=== PATIENT | female | born 1950 | race Caucasian/White ===

== ENCOUNTER 2016-10-29 07:35 | Inpatient (IN) | payer MEDICARE, OTHER ==
[2016-10-29] VITALS (14 sets, daily range): BP systolic 92–134; BP diastolic 51–80; PULSE 49–82; RESP 8–20; O2SAT 95–100
[~2016-10-29] VITALS: Ht 160 cm; Wt 83.1 kg
[~2016-10-29 07:35] MED LIST: ASPI325T32 PO; BUPR300T52 PO; Bupivacaine Liposome 1.3% 20 mL Inj INFILTRATE ONE; CHOL200025 PO; CeFAZolin 2 Gm/50 mL D5W IV Premix IV ONE; FEXO180T85 PO; FLUT16SP NS; LOSA50TA37 PO; LOVA40TA PO; Lactated Ringer's 1,000 ML IV ONE; MULT-1018 PO; OMEG-83 PO; PROP20TA5 PO; TRAM50TA2 PO; UBID1CAP3 PO; VIT1TABL83 PO; stool softener
[2016-10-29] MEDS ORDERED: Lactated Ringer's 500 ML IV PRN (10:07)
[2016-10-29] MEDS ORDERED: Lactated Ringer's 1,000 ML IV SCH (10:07)
--- NOTE | 2016-10-29 10:07 | PCM.HPANE ---
Patient Data Surgeon Admitting Provider: Attending Provider:Noman Aguirre DO Primary Care Physician:Nilton Braga MD Other Provider:Gabino Shaw Anesthesia Reason for Visit Left Knee Arthritis LEFT KNEE ARTHRITIS Ht/WT & BMI Height (Feet): 5 Height (Inches): 3.00 Weight (Kilograms): 84.500 Body Mass Index 33.00 Allergies Coded Allergies: hydrocodone (Verified Allergy, Severe, nausea, 10/29/16) morphine (Verified Allergy, Severe, emotional distress, 10/29/16) adhesive tape (Verified Allergy, Intermediate, tolerated bandaids, 10/21/16 ) hydroxyzine (Verified Allergy, Unknown, 10/21/16) Past Anesthesia History Anesthesia History: Denies:: Abnormal Airway, Anesthesia Reactions, Difficult Intubation, Fam Anesthesia Reaction (sister had difficult time with intubation recent surgery ), Fam Malignant Hypertherm, Malignant Hyperthermia Diabetes History Hx Diabetes?: No MRSA MRSA: No Medications Blood Thinner: Aspirin Hypertension Medication: Yes Home Meds Incl Beta Louis: Yes Date Beta Louis Taken: Oct 29, 2016 Time Beta Louis Taken: 629 Reported Medications Cholecalciferol (Vitamin D3) (Vitamin D3)2,000 Unit Tablet2,000 Unit PO DAILY 10/21/16 Vit B Comp/C/FA/Iron/Vit E (Vitamin B Complex Tablet)1 Each Tablet1 Each PO DAILY 10/21/16 Tramadol 50 Mg [id number] Mg PO BID PRN For Pain Ref 0 10/21/16 [stool softener] No Conflict [id number] Mg Pe BID PRN For Constipation 10/21/16 Propranolol HCl 20 Mg [id number] Mg PO BID 90 Days Ref 0 10/21/16 Multivitamin (Multi Vitamin Daily)1 Each Tablet1 Each PO DAILY 30 Days Ref 0 10/21/16 Lovastatin 40 Mg [id number] Mg PO HS #30 TABLET Ref 0 10/21/16 Losartan Potassium 50 Mg Hljfre68 Mg PO HS 10/21/16 Fluticasone Propionate (Fluticasone Propionate Nasal)16 Gm [place].susp1 [place] NS BID #16 GM Ref 0 10/21/16 [place]-3/Dha/Epa/Fish Oil (Fish Oil 500 mg Softgel)1 Each Capsule2 Each PO DAILY 10/21/16 Ubidecarenone/Vitamin E (Co Q-10 50 mg Softgel)1 Each Capsule1 Each PO DAILY 10/21/16 Bupropion ER 300 Mg Tab.[id number] Mg PO DAILY Ref 0 10/21/16 Aspirin 325 Mg Dbrqyk439 Mg PO DAILY #1 BOTTLE 10/21/16 Fexofenadine (Liz Allergy)180 Mg Jedvks080 Mg PO DAILY Ref 0 10/21/16 History History of ENT Problems?: Yes HEENT History: Positive for:: Sinus Problem (hx of seasonal allergies) Denies:: Abnormal Airway Cataracts Difficult Intubation Glaucoma Hearing Problem Denture Type: None Teeth Condition: Within Normal Limits Hx of Heart Problems?: Yes Cardiovascular History: Positive for:: Hypertension Denies:: AICD Abdominal Aortic Aneurism Atrial Fibrillation Cardiac Surgery Heart Murmur Irregular Heartbeat Pacemaker Peripheral Vascular Rheumatic Fever Hx of Respiratory Problem?: No Respiratory History: Positive for:: Cough (SEASONAL ALLERGIES) Denies:: Asthma COPD Emphysema Oxygen Administration Pneumonia Tuberculosis Use of C-PAP Machine Hx Neurologic Problems?: Yes Neurological History: Positive for:: Headaches (fairly often - weekly need for meds) Denies:: CVA Multiple Sclerosis Parkinson's Disease Seizures Hx of GI Problems?: No Hx of Problems?: No Genitourinary History: Denies:: Kidney Stones Urinary Tract Infection Female Hx: Denies:: Currently (hysterectomy) Problems with Breasts? Skin History: Denies:: History Skin Disorders? Pressure Ulcers Hx Musculoskeletal Problems?: Yes Musculoskeletal History: Positive for:: Back Injury (hx of laminectomy- bone spur L4-5) Degenerative Joint Musculoskeletal Trauma (left knee current admission problem) Osteoarthritis Denies:: Fibromyalgia Joint Replacement Systemic Lupus Hx of Psycho/Social Problems?: Yes Psycho Social History: Positive for:: Anxiety (propanolol as needed for anxiety) Hx Depression Hx Surgeries?: Yes (HYST, L TIBIA FX, APPY, L5 BONE SPUR) Hx Any Other Health Problems?: Yes Other History: Positive for:: Cancer (bcc - nose) Denies:: Endocrine Disease Hospitalization Thyroid Disease History Blood Transfusions: Positive for:: Accept Blood Products? Denies:: Blood Transfusions Hx Diabetes: No Hx Alcohol Use: NoAlcoholic Drinks Per Day: rare- one every few yearsHx Substance Use: NoHave You Smoked inLast 12 mo: Yes (quit july 06, 2016- 5-10 cig daily prior to that) Stop/Bang Treated for Sleep Apnea?: No Do You Have a CPAP Machine?: No S-Snoring: Do You Snore Loudly: No T-Tired: feel tired, fatigued: No O-Obsered: Observed not breath: No P-Blood Pressure: treated: Yes B- Body Mass Index > 35 kg/m2: No A- Age over 50: Yes N- Neck Large Circumference: No G- Gender Male: No GINO Total Score: 2 GINO Risk Assessment: Low Risk, <3 Yes Risk Assessment Category Category 1A: Patient has history of documented sleep apnea, and HAS NOT received any narcotic, sedative or anesthesia administration during this stay. Category 1B: Patient has history of documented sleep apnea, and HAS received any narcotic , sedative or anesthesia administration during this stay Category 2: Patient has SUSPECTED Obstructive Sleep Apnea, and HAS received any narcotic , sedative or anesthesia administration during this stay. Category 3: Patient has SUSPECTED Obstructive Sleep Apnea and HAS NOT received narcotic, sedative or anesthesia administration during this stay. Category 4: Outpatient in Procedural Areas with known sleep apnea or who screen positive for High Risk via the STOP/BANG questionnaire. Exam Exam Vital Signs Vital Signs Date Time Temp Pulse Resp B/P Pulse Ox O2 Delivery O2 Flow Rate FiO2 10/29/16 07:52 36.5 67 15 127/79 97 Room Air General Appearance: Oriented X3 HEENT/AIRWAY: MP 2 Lungs: Normal Air Movement Heart: Regular Rate/Rhythm Meds/Labs/Diagnostics Admission Meds Current Medications Lactated Ringer's (Lr) 1,000 ml @ 120 mls/hr Q8H20M ONCE IV Last administered on 10/29/16t 07:54; Start 10/29/16 at 05:00; Stop 10/29/16 at 13:19 Plan Impression Patient chart reviewed, patient interviewed and anesthestic plan with risks, benefits, and alternatives discussed, and informed consent obtained. ASA Physical Status: ASA2 Mod Systemic Disease Anesthetic Plan: Regional Block, SAB Bene/Risks/Altern/Consents: Yes HP Complete Prior to Induction: Yes Tomas Young MD Oct 29, 2016 10:07
[2016-10-29] MEDS ORDERED: MetoCLOpramide 5 mg/mL 2 mL Inj IVPUSH PRN (10:10)
[2016-10-29] MEDS ORDERED: EPHEDrine Sulfate 50 mg/mL Inj IVPUSH PRN (10:10)
[2016-10-29] MEDS ORDERED: Labetalol 5 mg/mL 20 mL Inj IV PRN (10:10)
[2016-10-29] MEDS ORDERED: Ondansetron 2 mg/mL 2 mL Inj IVPUSH PRN ×2 (10:10→13:30)
[2016-10-29] MEDS ORDERED: Dexamethasone 4 mg/mL Inj IVPUSH PRN (10:10)
[2016-10-29] MEDS ORDERED: Phenylephrine 10,000 mCg/mL Inj IVPUSH PRN (10:10)
[2016-10-29] MEDS ORDERED: Bupivacaine Liposome 1.3% 20 mL Inj ONE (10:21)
[2016-10-29] MEDS ORDERED: 0.9% Sodium Chloride 100 ML ONE (10:37)
[2016-10-29] MEDS: Tranexamic Acid 100 mg/mL 10 mL Inj ONE ×2 (10:37→11:07)
[2016-10-29] MEDS ORDERED: Vancomycin 1,000mg/200 mL NS IV ONE (10:37)
[2016-10-29] MEDS ORDERED: Vancomycin Inj 1,000 MG in IV Premix 1 EACH IV ONE (11:00)
[2016-10-29] MEDS ORDERED: Bupivacaine Liposome 1.3% 20 mL Inj INFILTRATE ONE (11:16)
[2016-10-29] MEDS ORDERED: Sodium Chloride Bacteriostatic 30 mL Inj INJ ONE (11:16)
[2016-10-29] MEDS ORDERED: Bupivacaine-MPF 0.5% 30 mL Inj INFILTRATE ONE (11:16)
[2016-10-29] MEDS: fentaNYL-PF 50 mCg/mL 2 mL Inj IVPUSH PRN ×6 (13:17→14:24)
[2016-10-29] MEDS ORDERED: HYDROmorphone 1 mg/mL Inj IVPUSH PRN (13:30)
[2016-10-29] MEDS ORDERED: Sodium Biphos-Phos 133 mL Enema RECTAL PRN (13:30)
[2016-10-29] MEDS ORDERED: Polyethylene Glycol (PEG) 17 Gm Powder PO PRN (13:30)
[2016-10-29] MEDS ORDERED: Magnesium Hydroxide 10 mL Oral Concentration PO PRN (13:30)
[2016-10-29] MEDS ORDERED: diphenhydrAMINE 25 mg Capsule PO PRN (13:30)
[2016-10-29] MEDS: Ketorolac 15 mg/mL Inj IVPUSH PRN ×2 (13:50→21:09)
--- NOTE | 2016-10-29 14:04 | PCM.ANEP1 ---
Post Anesthesia PACU Phase 1 Assessment Vital Signs Vital Signs Date Time Temp Pulse Resp B/P Pulse Ox O2 Delivery O2 Flow Rate FiO2 10/29/16 13:31 56 10 112/66 100 Simple Mask 10 10/29/16 13:26 51 8 105/66 100 Simple Mask 10 10/29/16 13:21 49 13 98/55 100 Simple Mask 10 10/29/16 13:15 50 19 95/55 98 Simple Mask 10 10/29/16 13:11 51 15 92/51 100 Simple Mask 10 10/29/16 13:05 51 12 98/59 95 Simple Mask 10 10/29/16 13:00 36.6 53 15 98/60 96 Simple Mask 10 10/29/16 07:52 36.5 67 15 127/79 97 Room Air Anesthetic Administered: GA, Regional Block Level of Alertness: Awake, talking Pain: No Nausea or Vomiting: No CV Function & Hydration Stable: Yes Airway Device: Lungs: Normal Air Movement PACU Phase 2 Assessment Patient Instructions Provided: N/A Tomas Young MD Oct 29, 2016 14:04
--- NOTE | 2016-10-29 14:09 | OP ---
[address] [address] OPERATIVE REPORT PATIENT: YI NICHOLE : 1950 MR#: [id number] ADMIT: 10/29/2016 JOB ID: [id number] DATE OF SURGERY: 10/29/2016 PREOPERATIVE DIAGNOSIS(ES): Left knee degenerative joint disease. POSTOPERATIVE DIAGNOSIS(ES): Left knee degenerative joint disease. PROCEDURE: Left total knee arthroplasty. SURGEON: Noman Aguirre DO. PULLING UNIT OPERATOR: None. INDICATIONS: The patient is a 65-year-old female with left knee posttraumatic arthritis after a tibial plateau fracture 30 years ago. She has had pain and instability and wished to proceed with a left total knee arthroplasty. We discussed the risks, benefits, and possible complications of surgery. All questions were answered and she wished to proceed. PROCEDURE IN DETAIL: The patient was brought to the operating room. She was given 1 g TXA preoperatively, as well as preoperative antibiotic. The left lower extremity was sterilely prepped and draped. A tourniquet was used for hemostasis. An incision was made over the anteromedial knee as I felt that I could not use her previous Abi-type incision and dissection was carefully carried through the subcutaneous tissue and down onto the quad tendon which was incised, leaving a cuff of tissue for repair. This was taken along the medial retinaculum and then down onto the proximal medial tibial face. A small amount of subperiosteal medial release was performed in order to gain exposure, and the patella was everted. A portion of the fat pad was removed. The femur was instrumented with the intramedullary drill and cutting sylvia, and a 5-degree distal valgus cut angle was chosen, 10 mm planned resection. The block was pinned into position. The cuts were performed. The tibia was addressed next with an extramedullary tibial cutting guide. I used the stylus to remove 1 mm of bone from the low side laterally, 10 cm from the high side medially The cutting jig was pinned into position. The cut was performed, completed with an osteotome, and the menisci were then removed. The femur was then sized, felt to be a size 6, with 5 degrees of external rotation. The block was pinned into position. The cuts were performed and then the box cut was performed. The knee was then trialed with the 6 femur and 4 tibia, which seemed to fit quite nicely. She did have some additional bone which was removed laterally as well, as I noticed at this point that there was this very small area of damage to the patellar tendon. About 20% to 25% of the tendon thickness was damaged as it had become trapped within her scar tissue from her previous surgical procedure. This was carefully monitored throughout the case. The patella was resurfaced with a freehand tie technique, cut from an initial thickness of about 22 to a thickness of 15. A 35 mm patellar button was chosen, drilled for and trialed, had excellent tracking. The femoral lugs were drilled. The tibia was drilled and punched, and the bony surfaces were washed and dried. We then cemented in a DePuy Attune fixed bearing 4 femur, followed by a DePuy Attune posterior stabilized 6 narrow femur, and a 5 mm thickness polyethylene component with a 38 mm patellar button. All excess cement was removed. The cement was then allowed to polymerize and then the tourniquet was let down. Electrocautery was used for hemostasis and I then repaired the small defect in the patellar tendon using two [id number] stitches with a FiberWire suture and then went to the usual closure with #1 Surgilon and 0 Vicryl to repair the quad tendon and medial retinaculum. The subcu was closed with 2-0 Vicryl. The skin was closed with a running subcuticular 4-0 Monocryl suture. A mixture of Exparel saline and Naropin was added as an adjunct local anesthetic. Sterile dressings were applied as well as Steri-Strips. Patient tolerated the procedure well. Blood loss was 50 cc. POSTOPERATIVE PROTOCOL: Have the patient weightbear to tolerance, but I would like her to use a hinged knee brace. Range of motion 0-90 degrees for the 1st six weeks and will plan to use aspirin for DVT prophylaxis.
[2016-10-29] MEDS: oxyCODONE-Acetamin 5-325 mg Tablet PO PRN ×2 (14:29→23:52)
--- NOTE | 2016-10-29 14:51 | DRSVH ---
PROCEDURE: X-RAY LEFT KNEE, ONE OR TWO VIEWS ([id number]) INDICATIONS: POST OPERATIVE TECHNIQUE: 2 view(s) of the knee acquired. COMPARISON: [facility], CR, XR KNEE ARTHRITIC SERIES LT, 05/13/2016, 9:03. [facility], CR, XR KNEE ARTHRITIC SERIES LT, 07/12/2015, 9:13. FINDINGS: Bones: Patient is status post knee joint arthroplasty. Hardware components are in expected position s. Visualized bony structures are intact. The overlying brace does result in difficulty evaluating the underlying bony structures on the lateral view. Soft tissues: Overlying postoperative changes are noted. Soft tissue air and soft tissue edema are present. No unexpected radiopaque foreign bodies are evident. IMPRESSION: Expected postoperative changes related to a total left knee arthroplasty. Dictated by: Vladislav Mcneil M.D. on 10/29/2016 at 13:49 Approved by: Vladislav Mcneil M.D. on 10/29/2016 at 13:50
[2016-10-29] MEDS ORDERED: Lactated Ringer's 1,000 ML IV ONE (15:45)
[2016-10-29] MEDS ORDERED: Propofol 10,000 mCg/mL 20 mL Inj ONE (16:36)
[2016-10-29] MEDS ORDERED: Ketamine 10 mg/mL 20 mL Inj ONE (16:36)
[2016-10-29] MEDS ORDERED: Dexamethasone 4 mg/mL Inj ONE (16:36)
[2016-10-29] MEDS ORDERED: fentaNYL-PF 50 mCg/mL 2 mL Inj ONE (16:36)
[2016-10-29] MEDS ORDERED: MetoCLOpramide 5 mg/mL 2 mL Inj ONE (16:36)
[2016-10-29] MEDS: 0.9% Sodium Chloride 1,000 ML IV SCH (16:53)
[2016-10-29] MEDS: Sodium Chloride LOK Flush 10 mL Syringe IV SCH (16:54)
[2016-10-29] MEDS: CeFAZolin Inj 2 GM in IV Premix 1 EACH IV SCH (17:51)
--- NOTE | 2016-10-29 19:37 | NUR ---
Arrival to [facility] Patient arrives to [facility] alert and oriented. Patient left leg in brace above mauro wrap. Ice bag in place at knee. Patient has a palpable posterior tibial pulse, warm toes, good sensation and movement. Patient does states she has some baseline numbness to the left leg related to a previous trauma. Patient denies any type of new numbness, tingling or burning. Patient states that pain is within a tolerable level. Ordered IV fluids and abx administered. Care is ongoing.
[2016-10-29] MEDS: Fluticasone 0.05% 15 Spray/2 Gm 16 Gm Nasal Spray NOSTRIL SCH (20:24)
[2016-10-29] MEDS: Senna-Docusate 8.6-50 mg Tablet PO SCH (20:26)
[2016-10-30 00:08] VITALS: BP 100/62; PULSE 69; RESP 18; O2SAT 97
[2016-10-30] MEDS: Sodium Chloride LOK Flush 10 mL Syringe IV SCH ×3 (00:30→16:30)
[2016-10-30] MEDS: CeFAZolin Inj 2 GM in IV Premix 1 EACH IV SCH (02:29)
[2016-10-30] MEDS: 0.9% Sodium Chloride 1,000 ML IV SCH ×3 (02:29→19:28)
[2016-10-30] MEDS: Ketorolac 15 mg/mL Inj IVPUSH PRN ×4 (03:33→20:51)
--- NOTE | 2016-10-30 05:10 | NUR ---
Pain and Positioning Patient is alert and oriented. Patient got up to the commode several times during the night - standby assist, tolerated well. Voiding without difficulty. Pain managed with Toradol IV. Patient states she would like to avoid taking narcotics when possible. Patient also states that repositioning helps with pain as well.
[2016-10-30 05:50] VITALS: BP 115/70; PULSE 73; RESP 20; O2SAT 97
[2016-10-30 06:50] LABS: BASOPHILS % (AUTO) 0.1 % (0-3); EOSINOPHILS % (AUTO) 0 % (0-5); MONOCYTES % (AUTO) 10.2 % (4-12); Mean Corpuscular Hemoglobin 29.8 pg (27.0-35.0); Mean Corpuscular Volume 89.5 fL (81-100); NEUTROPHILS % (AUTO) 67.7 % (40-74); Platelet Count 194 bil/L (150-400)
[2016-10-30] MEDS ORDERED: Benzocaine-Menthol Lozenge 2/Pkg PO PRN (08:05)
[2016-10-30] MEDS: Vitamin B Complex/Vit C Tablet PO SCH (08:32)
[2016-10-30] MEDS: Fluticasone 0.05% 15 Spray/2 Gm 16 Gm Nasal Spray NOSTRIL SCH ×2 (08:32→21:17)
[2016-10-30] MEDS: buPROPion XL 300 mg ER24 Tablet PO SCH (08:33)
[2016-10-30 09:07] VITALS: BP 121/64; PULSE 79; RESP 16; O2SAT 99
--- NOTE | 2016-10-30 09:12 | PCM.PNORTH ---
Subjective Date of Service: Oct 30, 2016 Visit Information: Reason for Visit Left Knee Arthritis Surgery/Surgery Date L TKA 10/29/16 Post-Op Day # 1 Date of Admission: Oct 29, 2016 at 16:35 Hospital Day # Subjective Patient states the brace feels heavy. She is trying to do her leg exercises but is difficult with the brace on. She complains of discomfort in the incisional area as well as the top of the thigh. Postop General: No Shortness of Breath, No Chest Pain Pain Management: PO, IV Push Objective Exam Objective Patient is seen sitting up in bed Vital Signs and I/O Vital Sign - Last Date Time Temp Pulse Resp B/P Pulse Ox O2 Delivery O2 Flow Rate FiO2 10/30/16 05:50 36.8 73 20 115/70 97 Room Air 10/29/16 13:31 10 Intake and Output 10/29/16 10/29/16 10/30/16 Cumulative From/Thru 15:00 23:00 07:00 10/21/16 15:10 - 10/30/16 06:05 Intake Total 1470 ml 520 ml 1845 ml 3835 ml Output Total 50 ml 900 ml 250 ml 1200 ml Balance 1420 ml -380 ml 1595 ml 2635 ml Intake Oral 520 ml 600 ml 1120 ml IV Total 1470 ml 1245 ml 2715 ml Output Urine Total 900 ml 250 ml 1150 ml Estimated Blood Loss 50 ml 50 ml # Bowel Movements 0 0 Lab & Micro Results Laboratory Tests Test 10/30/16 06:10 White Blood Count 11.4th/mm3 (3.8-10.1) Red Blood Count 3.42mil/mm3 (3.90-5.20) Hemoglobin 10.2g/dL (12.0-15.6) Hematocrit 30.6% (35.0-46.0) Mean Corpuscular Volume 89.5fL (81-100) Mean Corpuscular Hemoglobin 29.8pg (27.0-35.0) Mean Corpuscular Hemoglobin Concent 33.3% (32.0-37.0) Red Cell Distribution Width 13.4% (12.3-15.4) Platelet Count 194bil/L (150-400) Neutrophils (%) (Auto) 67.7% (40-74) Lymphocytes (%) (Auto) 21.7% (14-46) Monocytes (%) (Auto) 10.2% (4-12) Eosinophils (%) (Auto) 0% (0-5) Basophils (%) (Auto) 0.1% (0-3) Sodium Level 142mEq/L (134-144) Potassium Level 4.3mEq/L (3.5-5.2) Chloride Level 107mEq/L (97-108) Carbon Dioxide Level 23mmol/L (18-29) Blood Urea Nitrogen 10mg/dL (8-27) Creatinine 0.84mg/dL (0.57-1.00) Estimat Glomerular Filtration Rate 98mL/min (>59) Glucose Level 114mg/dL (60-99) Calcium Level 8.0mg/dL (8.5-10.1) Result Diagram: 10/30/1660910/30/16609 General Appearance: Alert, Oriented X3, Cooperative, No Acute Distress Extremities: Distal Pulses Palpable, No Compartment Syndrom Noted, Thigh & Calf Soft/Nontender Postop Sensory Motor: Distal Motor Intact, Distal Sensation Intact, NVI Distally SURGICAL WOUND : Wound Location/Description Left knee: Dressing is clean, dry and intact. Long leg hinged postoperative brace is in place set to 0-90 Activity: Activity per PT Catheters: None Assessment & Plan Impression POD#1 status post left total knee arthroplasty with patellar tendon repair Problems: Plan Weightbearing: Weightbearing as tolerated with front wheeled walker. Due to repair of patellar tendon, wear the long leg hinged brace locked at 0-90 for 6 weeks. At 2 weeks postop, may remove brace for sleeping at night DVT prophylaxis: aspirin 325 mg twice a day 6 weeks Physical therapy for transfers, progressive ambulation, therapeutic exercise Wound care: PA will change dressing on postop day 2 Discharge plan: Discharge home in 1-2 days. Start outpatient physical therapy next week Follow-up plan: In 2 weeks at [facility] with PA for wound check and at [address] Aguirre with x-rays Pain Management: Tramadol, Toradol, Dilaudid, Percocet VTE Prophylaxis: SCDs, Other (aspirin 325 mg twice a day) Resuscitation Status: CPR: Attempt Resuscitation Dianne Huizar PA-C Oct 30, 2016 09:12
[2016-10-30] MEDS: Senna-Docusate 8.6-50 mg Tablet PO SCH ×2 (09:40→21:18)
[2016-10-30] MEDS: oxyCODONE-Acetamin 5-325 mg Tablet PO PRN ×2 (09:40→14:55)
--- NOTE | 2016-10-30 11:20 | NUR ---
Social Work: Initial Assessment/Readiness for D/C D: EMR reviewed. Please see Initial Assessment linked to this note for more information. Pt is a 65 year old female admitted [place] with a readmit risk score of 2 for elective left knee TKA per H&P. Pt's insurance is Medicare. PCP is Nilton Braga MD. Pt discussed in multidisciplinary rounds, pt is POD 1. Pt is likely to discharge home, no needs. PT to evaluate pt today. SW met with pt at bedside to conduct initial assessment. Pt was alert and oriented x3. SW explained role and wrote phone number on white board. SW provided [facility] Discharge Planning Checklist and encouraged pt to contact SW for any discharge planning questions. Pt lives at home with her spouse in [place]. Pt is independent with all ADLs at baseline. Pt uses no DME at baseline, but has a cane and walker available for use at discharge. Pt drives. Pt has no HH or SNF history. Pt has no LTC or VA benefits. Pt has no DPOA on file, SW requested copy of pt's DPOA. Pt agreeable. Pt is likely to d/c home with to transport via POV. SW will continue to follow. A: Pt who is independent at baseline and has the capacity for self-care. P: Pt anticipated to discharge home with to transport via POV. No SW needs identified, no MD orders received at this time. PT to evaluate pt. SW will continue to follow for needs until time of discharge. AMANDA Escalante Addendum: 10/30/16 at 1128 by TAMIA ALVAREZ Amended: Links added.
[2016-10-30 15:55] VITALS: BP 108/66; PULSE 80; RESP 18; O2SAT 98
--- NOTE | 2016-10-30 17:58 | NUR ---
Activity- Patient up today with PT and ambulating to bathroom with standby assist. Patient moving well. Left leg dressing dry/intact. Incision pain controlled with oral pain meds.
[2016-10-30 19:31] VITALS: BP 125/67; PULSE 78; RESP 18; O2SAT 99
[2016-10-31] MEDS: oxyCODONE-Acetamin 5-325 mg Tablet PO PRN ×2 (00:33→11:23)
[2016-10-31] MEDS: Sodium Chloride LOK Flush 10 mL Syringe IV SCH ×2 (00:34→07:55)
--- NOTE | 2016-10-31 02:16 | NUR ---
Pain Patient A&OX3 and pleasant this evening. Complains of 5-10/10 left leg pain. IV Toradol and PO Percocet have been given at different times this shift; which appears to have been effective. Patient states that overall the knee pain is tolerable, it is when her leg starts to "smart" is when she requires pain medication. Will continue to monitor and continue Q1 hour checks.
[2016-10-31] MEDS: 0.9% Sodium Chloride 1,000 ML IV SCH (05:28)
[2016-10-31 05:29] VITALS: BP 117/67; PULSE 71; RESP 18; O2SAT 97
[2016-10-31 06:32] LABS: BASOPHILS % (AUTO) 0.2 % (0-3); MONOCYTES % (AUTO) 10.4 % (4-12); Mean Corpuscular Hemoglobin 29.6 pg (27.0-35.0); Mean Corpuscular Volume 90.2 fL (81-100); NEUTROPHILS % (AUTO) 54.7 % (40-74); Platelet Count 182 bil/L (150-400)
[2016-10-31] MEDS: Vitamin B Complex/Vit C Tablet PO SCH (07:55)
[2016-10-31] MEDS: buPROPion XL 300 mg ER24 Tablet PO SCH (07:55)
[2016-10-31] MEDS: Fluticasone 0.05% 15 Spray/2 Gm 16 Gm Nasal Spray NOSTRIL SCH (07:55)
[2016-10-31] MEDS: Senna-Docusate 8.6-50 mg Tablet PO SCH (07:55)
[2016-10-31] MEDS: Ketorolac 15 mg/mL Inj IVPUSH PRN (07:55)
--- NOTE | 2016-10-31 07:56 | PCM.PNORTH ---
Subjective Date of Service: Oct 31, 2016 Visit Information: Reason for Visit Left Knee Arthritis Surgery/Surgery Date L TKA 10/29/16 Post-Op Day # 2 Date of Admission: Oct 29, 2016 at 16:35 Hospital Day # Subjective Patient is doing extremely well with her mobility. She walks 150 feet with physical therapy. She has outpatient physical therapy scheduled to start next week. Postop General: No Shortness of Breath, No Chest Pain Pain Management: PO, IV Push Objective Exam Objective Patient is seen sitting up in bed Vital Signs and I/O Vital Sign - Last Date Time Temp Pulse Resp B/P Pulse Ox O2 Delivery O2 Flow Rate FiO2 10/31/16 05:29 36.9 71 18 117/67 97 Room Air 10/29/16 13:31 10 Intake and Output 10/30/16 10/30/16 10/31/16 Cumulative From/Thru 15:00 23:00 07:00 10/21/16 15:10 - 10/31/16 05:42 Intake Total 1076 ml 800 ml 5711 ml Output Total 1000 ml 1700 ml 3900 ml Balance 76 ml -900 ml 1811 ml Intake Oral 1076 ml 800 ml 2996 ml IV Total 2715 ml Output Urine Total 1000 ml 1700 ml 3850 ml Estimated Blood Loss 50 ml # Bowel Movements 0 0 0 Lab & Micro Results Laboratory Tests Test 10/31/16 06:09 White Blood Count 10.7th/mm3 (3.8-10.1) Red Blood Count 3.28mil/mm3 (3.90-5.20) Hemoglobin 9.7g/dL (12.0-15.6) Hematocrit 29.6% (35.0-46.0) Mean Corpuscular Volume 90.2fL (81-100) Mean Corpuscular Hemoglobin 29.6pg (27.0-35.0) Mean Corpuscular Hemoglobin Concent 32.8% (32.0-37.0) Red Cell Distribution Width 13.7% (12.3-15.4) Platelet Count 182bil/L (150-400) Neutrophils (%) (Auto) 54.7% (40-74) Lymphocytes (%) (Auto) 33.5% (14-46) Monocytes (%) (Auto) 10.4% (4-12) Eosinophils (%) (Auto) 1.0% (0-5) Basophils (%) (Auto) 0.2% (0-3) Sodium Level 138mEq/L (134-144) Potassium Level 4.0mEq/L (3.5-5.2) Chloride Level 102mEq/L (97-108) Carbon Dioxide Level 25mmol/L (18-29) Blood Urea Nitrogen 11mg/dL (8-27) Creatinine 0.87mg/dL (0.57-1.00) Estimat Glomerular Filtration Rate 94mL/min (>59) Glucose Level 111mg/dL (60-99) Calcium Level 8.1mg/dL (8.5-10.1) Result Diagram: 10/31/1660810/31/16608 General Appearance: Alert, Oriented X3, Cooperative, No Acute Distress Extremities: Distal Pulses Palpable, No Compartment Syndrom Noted, Thigh & Calf Soft/Nontender Postop Sensory Motor: Distal Motor Intact, Distal Sensation Intact, NVI Distally SURGICAL WOUND : Wound Location/Description Left knee: The hinged long leg brace is removed. The surgical dressing is removed. Steri-Strips are in place. There is mild ecchymosis present. Areas no erythema or acute drainage. The wound is cleansed with hydrogen peroxide. The wound is dressed with Silverlon and ABD pad. The dressing is held in place with an Vignesh wrap. The hinged brace is reapplied and adjusted. Brace is set 0- 90. Activity: Activity per PT Catheters: None Assessment & Plan Impression POD #2 status post left total knee arthroplasty and patellar tendon repair Problems: Plan Weightbearing: Weightbearing as tolerated with front wheeled walker. Due to repair of patellar tendon, wear the long leg hinged brace locked at 0-90 for 6 weeks. At 2 weeks postop, may remove brace for sleeping at night DVT prophylaxis: aspirin 325 mg twice a day 6 weeks Physical therapy for transfers, progressive ambulation, therapeutic exercise Wound care: Dressing is changed today to Silver line and ABD ELVIN hose are ordered. Nursing, please remove Vignesh wrap and apply ELVIN hose. Discharge plan: Discharge home today. Start outpatient physical therapy next week Discharge instructions are reviewed Follow-up plan: In 2 weeks at [facility] with PA for wound check and at [address] Aguirre with x-rays Pain Management: Toradol, Percocet, oxycodone VTE Prophylaxis: SCDs, ELVIN Avalos, Other (aspirin 325 mg twice a day) Resuscitation Status: CPR: Attempt Resuscitation [place] PA-C Oct 31, 2016 07:56
[2016-10-31 08:03] VITALS: BP 146/74; PULSE 70; RESP 18; O2SAT 97
--- NOTE | 2016-10-31 09:15 | PCM.DIORTH ---
Ortho Discharge Instruction Date of Service: Oct 31, 2016 Dates of Hospitalization Date of Hospital Admission Oct 29, 2016 at 16:35 Providers Admitting Physician: Noman Aguirre DO Primary Care Physician: Nilton Braga MD Attending Physician: Noman Aguirre DO Diet Discharge Diet: No restrictions Activity Discharge Activity-General: Try not to overdue, Be up and about, Balance rest and activity, Elevate & ice extremity (6-10 times per day) Discharge Assist Device: Front Wheeled Walker Dressing and Incisional Care Discharge Dressing Care: Keep dressing clean, dry & intact Discharge Hygiene: May shower (see instructions below), DO NOT soak incision under water, NO bathtub, hot tub or whirlpool Additional Instructions Discharge Instructions Weightbearing: Weightbearing as tolerated with front wheeled walker. Due to repair of patellar tendon, wear the long leg hinged brace locked at 0-90 for 6 weeks. At 2 weeks postop, may remove brace for sleeping at night DVT prophylaxis: aspirin 325 mg twice a day 6 weeks Start outpatient Physical therapy next week as scheduled Wound care and showering: On Friday the patient may shower if the wound has no drainage present. Wound may be uncovered to shower. Let soap and water run over the wound, pat dry and apply a new dressing. Reuse the silver dressing for 1 week. Moisten the silver dressing with the syringe of saline, and cover with the big pad. The ELVIN hose will hold the dressing in place or use the mauro wrap. Wear the ELVIN hose for 4 weeks on the left leg and for 2 weeks on the right leg Every hour of the day that you are awake, get up and move. Either walk or do some of your knee exercises. Try to increase her activity a little more each day. Follow Up Plan Follow Up Plan Follow-up plan: In 2 weeks at [facility] with YOHAN for wound check and at [address] Aguirre with x-rays Call your provider for: Fever, Chills, Shortness of breath, Vomitting, Drainage at incision, Wound redness (that is spreading), Increasing pain (for no reson) Dianne Huizar PA-C Oct 31, 2016 09:15
--- NOTE | 2016-10-31 09:18 | PCM.DC.ORT ---
Discharge Summary Date of Service: Oct 31, 2016 Date of Hospital Admission: Oct 29, 2016 at 16:35 Date of Surgery: Oct 29, 2016 Date of Discharge: Oct 31, 2016 Reason for Hospitalization: Left knee arthritis Procedures Performed: Left total knee arthroplasty and repair of patellar tendon Hospital Course: The patient was admitted to the hospital on 10/29/2016 and underwent the above procedure. Antibiotic prophylaxis consisting of Ancef and vancomycin. The surgeon was Dr. Aguirre. Patient tolerated the procedure well and was transferred to recovery room in stable condition. Patient had physical therapy to work on ambulation and transfers. Weightbearing as tolerated with walker. Due to the patellar tendon repair, the left lower extremity was placed in a hinged postop knee brace set 0-90. Pain was managed with Dilaudid, Percocet, Vistaril, Toradol. DVT prophylaxis: Aspirin 325 mg twice a day, SCDs and ELVIN hose Patient progressed well with physical therapy and ambulated 150 feet. On POD-2 was discharged home. Follow-up: at [facility] 2 weeks postop for wound check and at [address] Aguirre with x-ray Diagnosis at Time of Discharge Status post left total knee arthroplasty and patellar tendon repair Problems: Disposition: Discharged home in stable condition Discharge Instructions: Discharge Activity-General: Try not to overdue, Be up and about, Balance rest and activity, Elevate & ice extremity (6-10 times per day) Discharge Assist Device: Front Wheeled Walker Discharge Dressing Care: Keep dressing clean, dry & intact Discharge Hygiene: May shower (see instructions below), DO NOT soak incision under water, NO bathtub, hot tub or whirlpool Weightbearing: Weightbearing as tolerated with front wheeled walker. Due to repair of patellar tendon, wear the long leg hinged brace locked at 0-90 for 6 weeks. At 2 weeks postop, may remove brace for sleeping at night DVT prophylaxis: aspirin 325 mg twice a day 6 weeks Start outpatient Physical therapy next week as scheduled Wound care and showering: On Friday the patient may shower if the wound has no drainage present. Wound may be uncovered to shower. Let soap and water run over the wound, pat dry and apply a new dressing. Reuse the silver dressing for 1 week. Moisten the silver dressing with the syringe of saline, and cover with the big pad. The ELVIN hose will hold the dressing in place or use the mauro wrap. Wear the ELVIN hose for 4 weeks on the left leg and for 2 weeks on the right leg Every hour of the day that you are awake, get up and move. Either walk or do some of your knee exercises. Try to increase her activity a little more each day. ([stool softener]) 100 MG PE BID PRN PRN For Constipation ([Aspirin-Expunged Drug, Do Not Renew!]) 325 MG TABLET 325 MG PO BID for 6 weeks after surgery Bupropion ER (Bupropion ER) 300 Mg Tab.er.24h 300 MG PO DAILY Cholecalciferol (Vitamin D3) (Vitamin D3) 2,000 Unit Tablet 2,000 UNIT PO DAILY Fexofenadine (Liz Allergy) 180 Mg Tablet 180 MG PO DAILY Fluticasone Propionate (Fluticasone Propionate Nasal) 16 Gm [place].susp 1 SPRAY NS BID Losartan Potassium (Losartan Potassium) 50 Mg Tablet 50 MG PO HS Lovastatin (Lovastatin) 40 Mg Tablet 40 MG PO HS Multivitamin (Multi Vitamin Daily) 1 Each Tablet 1 EACH PO DAILY Tenmile-3/Dha/Epa/Fish Oil (Fish Oil 500 mg Softgel) 1 Each Capsule 2 EACH PO DAILY Polyethylene Glycol 3350 (Miralax) 17 Gm Powd.pack 17 GM PO DAILY PRN PRN For Constipation Propranolol HCl (Propranolol HCl) 20 Mg Tablet 20 MG PO BID Ubidecarenone/Vitamin E (Co Q-10 50 mg Softgel) 1 Each Capsule 1 EACH PO DAILY Vit B Comp/C/FA/Iron/Vit E (Vitamin B Complex Tablet) 1 Each Tablet 1 EACH PO DAILY oxyCODONE-Acetaminophen 5-325 mg (oxyCODONE-Acetaminophen 5-325 mg) 1 Each Tablet 1-2 TAB PO Q4H PRN PRN For Pain Max 8 per day Dianne Huizar PA-C Oct 31, 2016 09:18
[2016-10-31] MEDS ORDERED: POLY17PO6 PO (09:21)
[2016-10-31] MEDS ORDERED: Aspirin-Expunged Drug, Do Not Renew! PO (09:21)
[2016-10-31] MEDS ORDERED: OXYC1TAB24 PO (09:21)
--- NOTE | 2016-10-31 11:59 | NUR ---
Social Work- Discharge/Multidisciplinary Rounds Data: EMR reviewed. Pt is on day 2 of hospitalization. Pt discussed in multidisciplinary rounds, pt is medically stable for discharge today. Discharge orders are active. Pt is POD 2. Pt has all necessary DME at home. No SW needs discussed in rounds. Pt to d/c home with her to transport via POV. No additional d/c needs identified. Assessment: Pt who is independent at baseline. Plan: Pt to d/c home with her to transport via POV. Pt has all necessary DME at home. No additional d/c needs identified. Damaris Bhat, [employer]
--- NOTE | 2016-10-31 13:47 | NUR ---
Discharge Pt d/c'd from room 1030 today. All discharge teaching and instructions done with pt at bedside. All questions and concerns addressed. Pt has not items in the safe or pharmacy. IV d/c'd intact. Pt f/u apts made for 2 and 6 weeks. Hard copy of RX with the pt. to fill them. Bilateral eva hose ordered and placed. Pt given extra supplies for dressing changes. Pt verbalized understanding of taking care of knee.
== END 2016-10-31 13:53 | disposition home or self-care (01) | DRG 470 ==
LOC: SAS 07:35 → OSC 16:35
PROVIDERS: ADMIT Orthopaedic Surgery; ATTEND Orthopaedic Surgery
PROC: 0SRD0J9 Replacement of Left Knee Joint with Synthetic Substitute, Cemented, Open Approach (ICD-10-PCS; principal; 2016-10-29 10:15)
DX: M17.12 Unilateral primary osteoarthritis, left knee (principal); I10 Essential (primary) hypertension; Z79.82 Long term (current) use of aspirin